=== PATIENT | female | born 1985 | race Caucasian/White ===

== ENCOUNTER 2022-10-09 08:18 | Outpatient (CLI) | payer BC ==
--- NOTE | 2022-10-09 10:41 | XRAY Report ---
PROCEDURE: Hand 2 View BILAT INDICATIONS: BILATEREAL THUMB PAIN TECHNIQUE: 2 views of the hand(s) acquired. COMPARISON: None FINDINGS: Bones: No fractures or dislocations. Bilateral hand and wrist joint spaces are well preserved. No gr oss bony erosive changes. No suspicious bony lesions. Soft tissues: No suspicious soft tissue calcifications. IMPRESSION: Unremarkable radiographic examination of bilateral hands. Reviewed by: Izaiah Mejias MD on 10/09/2022 10:[address] [facility] Approved by: Izaiah Mejias MD on 10/09/2022 10:[address] [facility] Station ID: [id number]
== END 2022-10-09 08:19 | disposition home or self-care (01) ==
LOC: DI.S 08:18
PROVIDERS: ATTEND Nurse Practitioner Family
DX: M79.645 Pain in left finger(s) (principal); M79.644 Pain in right finger(s)

== ENCOUNTER 2022-12-02 10:56 | Outpatient (CLI) | payer BC ==
--- NOTE | 2022-12-02 20:41 | XRAY Report ---
PROCEDURE: Knee 3 View LT INDICATIONS: PAIN OF LEFT KNEE JOINT TECHNIQUE: 3 views of the left knee(s) were acquired. COMPARISON: None. FINDINGS: Bones: No fractures or dislocations. No suspicious bony lesions. Soft tissues: No joint effusion. No suspicious soft tissue calcifications. IMPRESSION: No acute osseous abnormality identified. If symptoms persist, follow-up radiographs and/ or CT or MRI may be helpful for further evaluation. Reviewed by: Davis Jensen MD on 12/02/2022 8:40 PM PST Approved by: Davis Jensen MD on 12/02/2022 8:40 PM PST Station ID: [id number]
== END 2022-12-02 10:57 | disposition home or self-care (01) ==
LOC: DI.S 10:56
PROVIDERS: ATTEND Nurse Practitioner Family
DX: M25.562 Pain in left knee (principal)

== ENCOUNTER 2024-03-07 09:40 | Outpatient (CLI) | payer BC | END 2024-03-07 09:41 | disposition home or self-care (01) | LOC: LAB.S 09:40 | PROVIDERS: ATTEND Emergency Medicine | DX: J06.9 Acute upper respiratory infection, unspecified (principal) | CPT/HCPCS: 87070 ==